=== PATIENT | female | born 1950 | race Asian ===

== ENCOUNTER → 2016-08-13 | Outpatient (CLI) | payer MEDICARE ==
[~2016-08-13] MED LIST: ALLO300T PO; CHOL100011 PO; DOCU50CA6 PO; FURO20TA3 PO; HYDR10TA11 PO; INTE0.3K3 INJ; LEVO112C2 PO; NIFE30TA9 PO; POTA20PA8 PO; POTA20TA14 PO; RANI150T8 PO; ROPI0.2537 PO; SOMA6CAR SQ
== END | disposition home or self-care (01) ==
LOC: CFH 08:15
PROVIDERS: ATTEND Internal Medicine Endocrinology, Diabetes & Metabolism
DX: Z13.820 Encounter for screening for osteoporosis (principal); M81.0 Age-related osteoporosis without current pathological fracture; M85.9 Disorder of bone density and structure, unspecified
CPT/HCPCS: 77080

== ENCOUNTER → 2017-11-26 | Outpatient (CLI) | payer MEDICARE ==
[~2017-11-26] MED LIST changes: +GADOBUTROL 10 MMOL/10 ML PFS ONE; +POTA20PA25 PO; -POTA20PA8 PO; +RANI150T23 PO; -RANI150T8 PO; -ROPI0.2537 PO; +ROPI0.254 PO
== END | disposition home or self-care (01) ==
LOC: CFH 14:35
PROVIDERS: ATTEND Neurological Surgery
DX: G31.9 Degenerative disease of nervous system, unspecified (principal); I67.82 Cerebral ischemia
CPT/HCPCS: 70553; 82565; A9585

== ENCOUNTER 2019-01-16 10:00 | Outpatient (CLI) ==
[~2019-01-16 10:00] MED LIST changes: -GADOBUTROL 10 MMOL/10 ML PFS ONE; +HYDR-3059 PO; -HYDR10TA11 PO; +RANI-467 PO; -RANI150T23 PO
== END 2019-01-16 23:59 | disposition home or self-care (01) ==
LOC: CFH 10:00
PROVIDERS: ATTEND Internal Medicine Endocrinology, Diabetes & Metabolism
DX: M81.0 Age-related osteoporosis without current pathological fracture (principal); Z88.0 Allergy status to penicillin; Z88.2 Allergy status to sulfonamides; Z90.710 Acquired absence of both cervix and uterus; Z87.891 Personal history of nicotine dependence
CPT/HCPCS: 77080